=== PATIENT | male | born 1990 | race Caucasian/White ===

== ENCOUNTER 2019-02-25 21:37 | Emergency (ER) | payer MEDICAID | END 2019-02-25 23:04 | disposition home or self-care (01) | LOC: E/R 21:37 | DX: S02.401A Maxillary fracture, unspecified side, initial encounter for closed fracture (principal); R51 Headache; W34.010A Accidental discharge of airgun, initial encounter; Y92.9 Unspecified place or not applicable; Z18.89 Other specified retained foreign body fragments | CPT/HCPCS: 70450; 70486; 99284-25 ==